=== PATIENT | female | born 1990 | race Caucasian/White ===

== ENCOUNTER 2016-08-23 07:06 | Emergency (ER) | payer OTHER ==
[2016-08-23] MEDS ORDERED: ONDANSETRON DISINTEGRATING 4 MG TAB PO ONE (07:15)
[2016-08-23] MEDS ORDERED: ONDANSETRON DISINTEGRATING 4 MG TAB ONE (07:17)
[2016-08-23] MEDS ORDERED: ONDANSETRON 4 MG/2 ML VIAL IVP ONE (07:21)
[2016-08-23] MEDS ORDERED: FAMOTIDINE 20 MG in NS 100 ML IV ONE ×2 (07:21→07:45)
[2016-08-23] MEDS ORDERED: HYDROmorphONE/DILAUDID 1 MG/ML SYR IVP ONE (07:21)
[2016-08-23] MEDS ORDERED: MAALOX/LIDO/HYOSC GI COCKTAIL 55 ML BOTTLE PO ONE (07:21)
[2016-08-23] MEDS ORDERED: NS 1,000 ML IV ONE (07:21)
[2016-08-23 07:23] VITALS: TEMP 97.7; O2SAT 98
--- NOTE | 2016-08-23 07:25 | UCPHY ---
H & P Time Seen by Provider: 08/23/16 07:17 Patient Type: New HPI/ROS: HPI Upper abdominal pain, heartburn. 26-year-old female by private vehicle. She presents to Urgent Care with complaint of epigastric pain with which she describes as heartburn, acid reflux up into the esophagus with a burning sensation from her epigastrium up into her chest. Onset 2 days ago. She has never had this pain or sensation before. She denies any change in diet. She is not on any new medications. She woke with this same pain this morning which she states has worsened and she had nausea with 2 episodes of nonbilious, nonbloody vomiting. She denies any significant past medical history. Last menstrual period 2 weeks ago. Last meal last night. Last bowel movement yesterday. No bloody or melenic stool. ROS: Constitutional: No fever, no chills. No weakness. Eyes: No discharge. No changes in vision. ENT: No sore throat. No nasal congestion or rhinorrhea. Respiratory: No cough. No shortness of breath. Cardiac: No chest pain, no palpitations. Gastrointestinal: As above, no diarrhea. Genitourinary: No hematuria. No dysuria or increased frequency with urination. Musculoskeletal: No back pain. No neck pain. No myalgias or arthralgias. Skin: No rashes. Neurological: No headache. No focal weakness or altered sensation. Past medical history: None. She is on control. Social history: Here by herself. Denies alcohol. Physical Exam: General Appearance: Alert, no distress. This patient is responding to questions appropriately and in full sentences. This patient appears well- hydrated and well-nourished. Eyes: Pupils equal and round no pallor or injection. No lid edema, erythema or injection. Respiratory: There are no retractions, lungs are clear to auscultation with good air movement bilaterally. Cardiovascular: Regular rate and rhythm. No murmur. Gastrointestinal: Abdomen is soft with mild epigastric tenderness on palpation , no masses, bowel sounds normal. No focal tenderness at McBurney's point. No Duran sign. Neurological: Motor sensory function is grossly intact. Cranial nerves are normal. Gait is normal. Skin: Warm and dry, no rashes. Musculoskeletal: Neck is supple and nontender. Extremities are symmetrical. All joints range without pain or impingement. Psychiatric: No agitation. No depression. Database: EKG: Imaging: Upright abdominal x-ray series: Some constipation. No free air. No obstructive pattern. Interpreted by me. Procedures: Emergency department course: IV placed. She was placed on a monitor. She was initially given 0.25 mg of IV hydromorphone, 20 mg of IV Pepcid, 4 mg of IV Zofran and a GI cocktail. She was started on IV normal saline with 1 L to be given over the next hour. Vital signs have been reviewed. An are not normal except for tachycardia in triage at 113. 8:15 a.m. patient re-evaluated. Pain is improved. She declined narcotic pain medication because she is driving. Results of x-ray and blood work discussed with her. She was given 40 mg of oral Protonix. Vital signs reviewed again. Tachycardia has resolved. Heart rate 70. Have ordered the H pylori antibody test. We cannot do the breath test or the feces test here at urgent care. I discussed her having this done through her primary care physician as well as follow up on the H pylori antibody test results we did here in urgent care. 8:35 a.m., patient re-evaluated. She is resting comfortably. Repeat abdominal exam she is soft, nontender nondistended. She feels comfortable going home and I feel she is safe for discharge. I will prescribe her a proton pump inhibitor to be on for the next 2 weeks. Medications to be extended based on further workup by her primary care physician. I again reviewed H pylori testing with her as well as possible need for gastroenterology referral for endoscopy. All of her questions were answered. Return to Urgent Care/emergency department precautions discussed. She was discharged in good condition. Differential Diagnosis: The differential diagnosis on this patient includes but is not limited to acid reflux, pancreatitis, peptic ulcer disease, biliary colic. Perforated peptic ulcer, bowel obstruction, other surgical etiology unlikely. This represents a partial list of diagnoses considered. These considerations are based on history , physical exam, past history, reassessment and diagnostic testing. Smoking Status: Never smoked Constitutional: Initial Vital Signs Temperature (C) 36.5 C 08/23/16 07:20 Heart Rate 113 H 08/23/16 07:20 Respiratory Rate 14 08/23/16 07:20 Blood Pressure 143/100 H 08/23/16 07:20 O2 Sat (%) 98 08/23/16 07:20 O2 Delivery Mode Room Air Allergies/Adverse Reactions: No Known Allergies Allergy (Unverified 09/18/14 07:30) Home Medications: Medication Instructions Recorded Nitrofurantoin Macrobid [Macrobid] 100 mg PO BID 5 Days 09/18/14 Norgestimate-Ethinyl Estradiol 09/18/14 [Ortho Tri-Cyclen 28 Tablet] Ondansetron Odt [Zofran Odt 4 mg 4 mg PO Q4PRN PRN #10 tab 08/23/16 (*)] Pantoprazole Sodium [Protonix] 40 mg PO DAILY #30 tab 08/23/16 Medical Decision Making - Data Points Laboratory Results: Laboratory Results 08/23/16 07:30 08/23/16 07:30 08/23/16 08/23/16 08/23/16 07:30 07:30 07:30 WBC 11.69 10^3/uL H 10^3/uL (3.80-9.50) RBC 4.96 10^6/uL 10^6/uL (4.18-5.33) Hgb 15.0 g/dL g/dL (12.6-16.3) Hct 42.1 % % (38.0-47.0) MCV 84.9 fL fL (81.5-99.8) MCH 30.2 pg pg (27.9-34.1) MCHC 35.6 g/dL g/dL (32.4-36.7) RDW 11.5 % % (11.5-15.2) Plt Count 325 10^3/uL 10^3/uL (150-400) MPV 8.7 fL fL (8.7-11.7) Neut % (Auto) 64.8 % % (39.3-74.2) Lymph % (Auto) 29.7 % % (15.0-45.0) [place] % (Auto) 3.4 % L % (4.5-13.0) Eos % (Auto) 1.3 % % (0.6-7.6) Baso % (Auto) 0.5 % % (0.3-1.7) Nucleat RBC Rel Count 0.0 % % (0.0-0.2) Absolute Neuts (auto) 7.58 10^3/uL H 10^3/uL (1.70-6.50) Absolute Lymphs (auto) 3.47 10^3/uL H 10^3/uL (1.00-3.00) Absolute Monos (auto) 0.40 10^3/uL 10^3/uL (0.30-0.80) Absolute Eos (auto) 0.15 10^3/uL 10^3/uL (0.03-0.40) Absolute Basos (auto) 0.06 10^3/uL 10^3/uL (0.02-0.10) Absolute Nucleated RBC 0.00 10^3/uL 10^3/uL (0-0.01) Immature Gran % 0.3 % % (0.0-1.1) Immature Gran # 0.03 10^3/uL 10^3/uL (0.00-0.10) Sodium 141 mEq/L mEq/L (134-144) Potassium 3.1 mEq/L L mEq/L (3.5-5.2) Chloride 102 mEq/L mEq/L (97-110) Carbon Dioxide 23 mEq/l mEq/l (22-31) Anion Gap 16 mEq/L mEq/L (8-16) BUN 10 mg/dL mg/dL (7-23) Creatinine 0.8 mg/dL mg/dL (0.6-1.0) Estimated GFR > 60 Glucose 119 mg/dL H mg/dL (70-100) Calcium 9.6 mg/dL mg/dL (8.5-10.4) Total Bilirubin 0.5 mg/dL mg/dL (0.1-1.4) Conjugated Bilirubin 0.2 mg/dL mg/dL (0.0-0.5) Unconjugated Bilirubin 0.3 mg/dL mg/dL (0.0-1.1) AST 19 IU/L IU/L (14-46) ALT 25 IU/L IU/L (9-52) Alkaline Phosphatase 44 IU/L IU/L (38-126) Total Protein 7.0 g/dL g/dL (6.3-8.2) Albumin 3.9 g/dL g/dL (3.5-5.0) Lipase 153.0 IU/L IU/L (23-300) Beta HCG, Qual NEGATIVE Medications Given: Discontinued Medications Hydromorphone HCl (Dilaudid) 0.25 mg IVP EDNOW ONE Stop: 08/23/16 07:22 Last Admin: 08/23/16 08:14 Dose: Not Given Sodium Chloride (Ns) 1,000 mls @ 0 mls/hr IV ONCE ONE PRN Reason: Wide Open Stop: 08/23/16 07:22 Last Admin: 08/23/16 07:30 Dose: 1,000 mls Famotidine 20 mg/ Sodium (Chloride) 102 mls @ 408 mls/hr IV EDNOW ONE Stop: 08/23/16 07:35 Last Admin: 08/23/16 08:12 Dose: Not Given Famotidine 20 mg/ Sodium (Chloride) 102 mls @ 408 mls/hr IV EDNOW ONE Stop: 08/23/16 07:59 Last Admin: 08/23/16 07:45 Dose: 102 mls Miscellaneous Medication (Gi Cocktail) 55 ml PO EDNOW ONE Stop: 08/23/16 07:22 Last Admin: 08/23/16 07:40 Dose: 55 ml Ondansetron HCl (Zofran) 4 mg IVP EDNOW ONE Stop: 08/23/16 07:22 Last Admin: 08/23/16 07:40 Dose: 4 mg Departure - Departure Disposition: Home, Routine, Self-Care Clinical Impression: Epigastric abdominal pain, Acid reflux Condition: Good Instructions: Gastroesophageal Reflux Disease (ED) Additional Instructions: Read and follow provided instructions. Follow-up with your primary care physician in 2-3 days for re-evaluation, additional testing for H pylori and peptic ulcer disease as discussed as well as gastroenterology referral for an endoscopy as needed. Take medication as prescribed. Return to the emergency department for worsening pain, vomiting, blood in her stool or other serious concerns. Referrals: MIGUEL WOOD [Primary Care Provider] - As per Instructions Carlo Sánchez MD [Medical Doctor] - As per Instructions Prescriptions: Ondansetron Odt [Zofran Odt 4 mg (*)] 4 mg PO Q4PRN PRN #10 tab PRN Reason: For Nausea & Vomiting Pantoprazole Sodium [Protonix] 40 mg PO DAILY #30 tab - PQRS PQRS Measurement: Not applicable.
[2016-08-23] MEDS ORDERED: FAMOTIDINE 20 MG/2 ML SDV ONE (07:34)
[2016-08-23 07:35] LABS: % IMMATURE GRANULYOCYTES 0.3 % (0.0-1.1); ABSOLUTE IMMATURE GRANULOCYTES 0.03 10^3/uL (0.00-0.10); ADD DIFF? NO; ADD MORPH? NO; ADD SCAN? NO; ATYPICAL LYMPHOCYTE FLAG 10 (0-99); FRAGMENT RBC FLAG 0 (0-99); HEMATOCRIT 42.1 % (38.0-47.0); LEFT SHIFT FLG 0 (0-99); LIPEMIA HEMOLYSIS FLAG 90 (0-99); MEAN CELL HEMOGLOBIN 30.2 pg (27.9-34.1); MEAN CELL HEMOGLOBIN CONCENTR. 35.6 g/dL (32.4-36.7); MEAN CELL VOLUME 84.9 fL (81.5-99.8); MEAN PLATELET VOLUME 8.7 fL (8.7-11.7); PLATELET CLUMPS FLAG 0 (0-99); PLATELET COUNT 325 10^3/uL (150-400); RED BLOOD CELL COUNT 4.96 10^6/uL (4.18-5.33); RED CELL DISTRIBUTION WIDTH 11.5 % (11.5-15.2)
[2016-08-23 07:55] LABS: ALANINE AMINOTRANSFERASE 25 IU/L (9-52); ALBUMIN 3.9 g/dL (3.5-5.0); ALKALINE PHOSPHATASE 44 IU/L (38-126); ANION GAP 16 mEq/L (8-16); ASPARTATE AMINOTRANSFERASE 19 IU/L (14-46); BILIRUBIN,TOTAL 0.5 mg/dL (0.1-1.4); BILIRUBIN-CONJUGATED 0.2 mg/dL (0.0-0.5); BILIRUBIN-UNCONJUGATED 0.3 mg/dL (0.0-1.1); CALCIUM 9.6 mg/dL (8.5-10.4); CARBON DIOXIDE 23 mEq/l (22-31); CHLORIDE 102 mEq/L (97-110); CREATININE 0.8 mg/dL (0.6-1.0); GLOMERULAR FILTRATION RATE > 60; GLUCOSE 119 mg/dL (70-100); POTASSIUM 3.1 mEq/L (3.5-5.2); SODIUM 141 mEq/L (134-144)
[2016-08-23] MEDS ORDERED: PANTOPRAZOLE SODIUM 40 MG TAB PO ONE (08:21)
[2016-08-23 10:19] VITALS: BP 135/90; PULSE 67; RESP 18
== END 2016-08-23 08:54 | disposition home or self-care (01) ==
LOC: CED 07:06
DX: K21.9 Gastro-esophageal reflux disease without esophagitis (principal)
CPT/HCPCS: 74000-PO; 80048-PO; 80076-PO; 83690-PO; 84703-PO; 85025-PO; 86677-PO; 96361-PO; 96374-PO; 96375-PO; G0463-PO; J1170; J2405

== ENCOUNTER → 2016-08-27 | Outpatient (CLI) | payer OTHER | LOC: CIMAGING 16:44 | PROVIDERS: ATTEND Family Medicine | DX: R07.9 Chest pain, unspecified (principal) | CPT/HCPCS: 71020-PO ==